=== PATIENT | male | born 1985 | race Caucasian/White ===

== ENCOUNTER → 2016-11-04 | Outpatient (CLI) | payer OTHER, SELFPAY ==
--- NOTE | 2016-11-05 09:53 | US ---
EXAM DESCRIPTION: Soft Tissue,Head/Neck CLINICAL HISTORY: ADENOPATHY COMPARISON: None Available. TECHNIQUE: Grayscale and color Doppler imaging of the right side of the neck. FINDINGS: Scaling color Doppler imaging of the right side of the neck demonstrates multiple small subcentimeter and centimeter sized lymph nodes on the right with no necrotic or cystic or conglomerate nodes or markedly enlarged nodes to suggest a pathologic process. At least three separate nodes are measured with one node superficial to the sternocleidomastoid measuring 9 mm in length and additional small nodes deep to the sternocleidomastoid measuring 1 cm in length. No drainable fluid collection or large soft tissue mass noted. IMPRESSION: Multiple small normal size lymph nodes noted in the right side of the neck without necrotic or markedly enlarged or conglomerate lymphadenopathy noted. Electronically signed by: Tank Mcdonald MD 11/05/2016 9:51 AM CDT
== END ==
LOC: US 13:12
PROVIDERS: ATTEND Nurse Practitioner Family
DX: R59.0 Localized enlarged lymph nodes (principal)

== ENCOUNTER → 2019-12-02 | Outpatient (CLI) | payer OTHER | LOC: GMA MATASK 14:20 | PROVIDERS: ATTEND Family Medicine | DX: R53.83 Other fatigue (principal) ==